=== PATIENT | female | born 1955 | race Caucasian/White ===

== ENCOUNTER 2016-08-04 15:48 | Inpatient (IN) | payer OTHER ==
[~2016-08-04] VITALS: Ht 160 cm; Wt 61.8 kg
[~2016-08-04 15:48] MED LIST: ALPR0.5T PO; ALPR1TAB2 PO; CARB15SO5 MM
[2016-08-04] MEDS ORDERED: NITROGLYCERIN 2% 1 GM OINT PKT TD STA (16:40)
[2016-08-04] MEDS ORDERED: ASPIRIN 81 MG TAB PO STA (16:40)
[2016-08-04] MEDS ORDERED: NITROGLYCERIN (SL) 0.4 MG TAB SL PRN (17:00)
[2016-08-04] MEDS ORDERED: LORAZEPAM 2 MG INJ IV ONE (17:00)
[2016-08-04 17:08] LABS: BASOPHILS % 0.4 % (0.0-2.0); CONDITION 1; EOSINOPHILS % 0.3 % (0.0-7.0); HEMATOCRIT 43.1 % (37.0-47.0); HEMOGLOBIN 14.4 g/dl (12.0-16.0); LYMPHOCYTES # 1.9 10^3/ul (0.8-2.9); LYMPHOCYTES % 26.5 % (15.0-51.0); MEAN CORPUSCULAR HEMOGLOBIN 32.4 pg (29.0-33.0); MEAN CORPUSCULAR HGB CONC 33.4 g/dl (32.0-37.0); MEAN CORPUSCULAR VOLUME 96.8 fl (82.0-101.0); MEAN PLATELET VOLUME 9.2 fl (7.4-10.4); MONOCYTE # 0.6 10^3/ul (0.3-0.9); NEUTROPHIL # 4.8 10^3/ul (1.6-7.5); NEUTROPHILS % 64.8 % (39.0-77.0); PLATELET COUNT 188 10^3/UL (140-440); RED BLOOD COUNT 4.45 10^6/ul (4.20-5.40); RED CELL DISTRIBUTION WIDTH 13.1 % (11.5-14.5); UNCORRECTED WBC 7.3 10^3/ul (4.8-10.8); WHITE BLOOD COUNT 7.3 10^3/ul (4.8-10.8)
[2016-08-04 17:17] LABS: CHLORIDE 104 mmol/L (97-110); INR 0.93; POTASSIUM 4.4 mmol/L (3.5-5.1); PROTIME 12.5 Sec (12.2-14.2); SODIUM 144 mmol/L (135-144)
[2016-08-04 17:18] LABS: PARTIAL THROMBOPLASTIN TIME 27.7 Sec (25.0-35.0)
[2016-08-04 17:20] LABS: ANION GAP 15 (8-16); BLOOD UREA NITROGEN 17 mg/dl (7-20); CARBON DIOXIDE 29 mmol/L (21-31); CREATININE 0.81 mg/dl (0.44-1.00)
--- NOTE | 2016-08-04 17:20 | RADRPT ---
PROCEDURE: Chest Radiograph. CLINICAL INDICATION: Chest pain TECHNIQUE: Single frontal chest radiograph. COMPARISON: None available FINDINGS: Heart size is within normal limits. Atherosclerotic calcifications are present. No infiltrate or effusion is seen. The bones are intact. IMPRESSION: 1. No evidence of acute cardiopulmonary disease. 2. Atherosclerotic vascular disease. RPTAT: HJ[facility] .Silver Garcia MD, MD Date Time Electronically viewed and signed by .Silver Garcia MD, on 08/04/2016 17:19 .B/
[2016-08-04 17:21] LABS: CALCIUM 9.3 mg/dl (8.4-10.2); GLUCOSE 123 mg/dl (70-220)
[2016-08-04 17:37] LABS: TROPONIN-I < 0.012 ng/ml (0.00-0.12)
[2016-08-04] MEDS ORDERED: ACETAMINOPHEN 325 MG TAB PO PRN (18:30)
[2016-08-04] MEDS ORDERED: ONDANSETRON 4 MG INJ IV PRN ×2 (18:30)
[2016-08-04] MEDS ORDERED: HYDROCODONE/APAP (5/325) TAB PO PRN (18:30)
[2016-08-04] MEDS ORDERED: hydrALAzine 20 MG INJ IV PRN (19:00)
--- NOTE | 2016-08-04 19:17 | ERA ---
ER Documentation Chief Complaint Date/Time DATE: 08/04/16 TIME: 19:16 Chief Complaint CHEST PAIN FOR 3 DAYS. ANXIETY AND FEELS FLUSHED IN FACE. NO SIGNS OF SOB HPI Patient is a 60-year-old female who smokes and has a history of coronary disease who presents with chest pain and headache. She also feels very anxious. Her symptoms started 2 days ago. She said they were constant. The chest pain has been worse over the past few hours. She took Gas-X and Mylanta. She has had midsternal chest pressure and belching. Upon review of old medical records this is the patient's third visit to the ER since 2016. ROS All systems reviewed and are negative except as per history of present illness. Medications Home Meds Discontinued Scripts Alprazolam* (Xanax*) 1 Mg Tab, 1 MG PO Q8H Y for ANXIETY, #2 TAB Prov:BEE ZENDEJAS PA-C 12/08/15 Carbamide Peroxide (Gly-Oxide) 60 Ml Solution, 60 ML MM TID, #4 Prov:BEE ZENDEJAS PA-C 12/08/15 Alprazolam* (Xanax*) 0.5 Mg Tab, 0.5 MG PO Q8H Y for ANXIETY, #6 TAB Prov:LASHAUN HUSSEIN MD 07/25/15 Allergies Allergies: Coded Allergies: Penicillins (Unverified Allergy, Severe, 08/04/16) Tetracyclines (Unverified Allergy, Severe, 08/04/16) codeine (Verified Allergy, Severe, 08/04/16) iodine (Verified Allergy, Severe, 08/04/16) PMhx/Soc Medical and Surgical Hx: pt denies Medical Hx Hx Alcohol Use: No Hx Substance Use: No Hx Tobacco Use: No FmHx Family History: coronary disease Physical Exam Vitals Vital Signs Date Time Temp Pulse Resp B/P Pulse Ox O2 Delivery O2 Flow Rate FiO2 08/04/16 15:56 98.4 97 21 163/68 98 Physical Exam Const: Anxious Head: Atraumatic Eyes: Normal Conjunctiva ENT: Normal External Ears, Nose and Mouth. Neck: Full range of motion..~ No meningismus. Resp: Clear to auscultation bilaterally Cardio: Regular rate and rhythm, no murmurs Abd: Soft, non tender, non distended. Normal bowel sounds Skin: No petechiae or rashes Back: No midline or flank tenderness Ext: No cyanosis, or edema Neur: Awake and alert Psych: Normal Mood and Affect Result Diagram: 08/04/16 1640 08/04/16 1640 Results 24 hrs Laboratory Tests Test 08/04/16 16:40 Activated Partial Thromboplast Time 27.7Sec Anion Gap 15 Basophils # 0.010^3/ul Basophils % 0.4% Blood Urea Nitrogen 17mg/dl Calcium Level 9.3mg/dl Carbon Dioxide Level 29mmol/L Chloride Level 104mmol/L Creatinine 0.81mg/dl Eosinophils # 0.010^3/ul Eosinophils % 0.3% Glucose Level 123mg/dl Hematocrit 43.1% Hemoglobin 14.4g/dl INR International Normalized Ratio 0.93 Lymphocytes # 1.910^3/ul Lymphocytes % 26.5% Mean Corpuscular Hemoglobin 32.4pg Mean Corpuscular Hemoglobin Concent 33.4g/dl Mean Corpuscular Volume 96.8fl Mean Platelet Volume 9.2fl Monocytes # 0.610^3/ul Monocytes % 8.0% Neutrophils # 4.810^3/ul Neutrophils % 64.8% Nucleated Red Blood Cells # 0.010^3/ul Nucleated Red Blood Cells % 0.0/100WBC Platelet Count 66477^3/UL Potassium Level 4.4mmol/L Prothrombin Time 12.5Sec Prothrombin Time Ratio 1.0 Red Blood Count 4.4510^6/ul Red Cell Distribution Width 13.1% Sodium Level 144mmol/L Troponin I < 0.012ng/ml White Blood Count 7.310^3/ul Current Medications Medications (Trade) Dose Ordered Sig/Zoila Route PRN Reason Start Time Stop Time Status Last Admin Dose Admin Aspirin (Aspirin) 162 mg ONCE STAT PO 08/04/16 16:40 08/04/16 16:41 DC 08/04/16 16:52 Nitroglycerin (Nitroglycerin 2% Oint) 1 inch ONCE STAT TD 08/04/16 16:40 08/04/16 16:41 DC 08/04/16 16:56 Nitroglycerin (Nitroglycerin (Sl Tab) 0.4 Mg) 1 tab Q5M UP TO 3 DOSES PRN SL CHEST PAIN 08/04/16 17:00 08/04/16 16:52 Lorazepam (Ativan) 0.5 mg ONCE ONCE IV 08/04/16 17:00 08/04/16 17:01 DC 08/04/16 16:57 Ondansetron HCl (Zofran Inj) 4 mg ER BRIDGE PRN IV NAUSEA AND/OR VOMITING 08/04/16 18:30 08/04/16 18:47 DC Acetaminophen (Tylenol Tab) 650 mg ER BRIDGE PRN PO MILD PAIN/FEVER 08/04/16 18:30 08/04/16 18:47 DC Aspirin (Halfprin) 81 mg DAILY PO 08/05/16 09:00 UNV Metoprolol Tartrate (Lopressor) 25 mg BID PO 08/04/16 21:00 UNV Docusate Sodium (Colace) 100 mg BID PO 08/04/16 21:00 UNV Famotidine (Pepcid) 20 mg BID PO 08/04/16 21:00 UNV Ondansetron HCl (Zofran Inj) 4 mg Q6H PRN IV NAUSEA AND/OR VOMITING 08/04/16 18:30 UNV Acetaminophen/ Hydrocodone Bitart ([place] (5/325)) 1 tab Q6H PRN PO pain 08/04/16 18:30 UNV Hydralazine HCl (Apresoline) 10 mg Q6H PRN IV sbp>160mmhg 08/04/16 19:00 UNV Lorazepam (Ativan) 0.5 mg Q12H PRN IV anxiety 08/04/16 19:00 UNV Procedures/MDM EKG #1 read by me: Rate/Rhythm: Regular rate and rhythm at a rate of 93 Intervals: Normal Impression: No evidence of ischemia or arrhythmia EKG #2 pending at this time. Chest x-ray negative for pneumonia or pneumothorax per radiology. Smoking Cessation Therapy: Pt. was lectured for greater than 3 minutes on the health risks of continued smoking and the benefits of cessation. Patient is a 60-year-old female with smoking and her family history of coronary disease who presents with chest pain. I am concerned about possible acute coronary syndrome. I doubt pneumonia, pneumothorax, pulmonary embolism, or aortic dissection. I believe the patient will need admission to a telemetry bed. I spoke with Dr. Kilgore from the panel team as the patient is preferred [employer] insurance. The patient was given aspirin and nitroglycerin empirically. Departure Diagnosis: Primary Impression: Chest pain Qualified Code: R07.9 - Chest pain, unspecified type Condition: LASHAUN Garcia MD Aug 04, 2016 19:17
--- NOTE | 2016-08-04 20:41 | RADRPT ---
PROCEDURE: CT Brain without contrast. CLINICAL INDICATION: Headache with theresa oral numbness. TECHNIQUE: A CT of the brain was performed on a multidetector CT scanner utilizing axial sections from the skull base through the vertex without contrast. Images were reviewed on a high-resolution [employer] workstation. Exam CTDI = 44.97 mGy and the DLP = 720.23 mGy-cm. One or more of the following dose reduction techniques were used: Automated exposure control Adjustment of the mA and/or kV according to patient size. Use of iterative reconstruction technique. COMPARISON: None available FINDINGS: There is age appropriate mild generalized volume loss. There is no evidence of intracranial hemorrh age, mass effect or midline shift. No abnormal intra-axial or extra-axial fluid collections are see n. The density of the brain is normal and the duggan/white matter differentiation is well preserved. The osseous structures and visualized paranasal sinuses are unremarkable. Faint vascular calcific ations are present. IMPRESSION: 1. No intracranial hemorrhage, mass effect or midline shift. 2. Mild generalized volume loss. 3. Mild intracranial atherosclerosis. RPTAT: [facility] .Derek Berry MD, MD Date Time Electronically viewed and signed by .Derek Berry MD, on 08/04/2016 20:41 .O/
[2016-08-04] MEDS: METOPROLOL 25 MG TAB PO SCH (21:00)
[2016-08-04] MEDS: DOCUSATE SODIUM 100 MG CAP PO SCH (21:00)
[2016-08-04] MEDS: FAMOTIDINE 20 MG TAB PO SCH (21:35)
[2016-08-04] MEDS: LORAZEPAM 2 MG INJ IV PRN (21:38)
[2016-08-04 22:16] LABS: ADD UMIC NO; URINE BILIRUBIN (Dip) NEGATIVE (NEGATIVE); URINE BLOOD (Dip) NEGATIVE (NEGATIVE); URINE COLOR LT. YELLOW (YELLOW); URINE GLUCOSE (Dip) NEGATIVE (NEGATIVE); URINE KETONES (Dip) NEGATIVE (NEGATIVE); URINE LEUKOCYTE ESTERASE (Dip) NEGATIVE (NEGATIVE); URINE NITRITE (Dip) NEGATIVE (NEGATIVE); URINE TOTAL PROTEIN (Dip) NEGATIVE (NEGATIVE); URINE UROBILINOGEN (Dip) 0.2 E.U./dL (0.1-1.0)
[2016-08-04 22:54] LABS: BARBITURATES Negative (NEGATIVE); BENZODIAZEPINES Negative (NEGATIVE); CANNABINOIDS Negative (NEGATIVE); COCAINE Negative (NEGATIVE); OPIATES Negative (NEGATIVE)
[2016-08-04 23:06] LABS: CREATINE KINASE 49 IU/L (23-200)
[2016-08-04 23:22] LABS: TROPONIN-I < 0.012 ng/ml (0.00-0.12)
[2016-08-05] VITALS (10 sets, daily range): BP systolic 92–131; BP diastolic 51–64; PULSE 53–68; RESP 18–20; Ht 160 cm; Wt 61.8 kg
[2016-08-05] MEDS ORDERED: ZOLPIDEM 5 MG TAB PO PRN (01:30)
--- NOTE | 2016-08-05 06:00 | HP ---
DATE OF ADMISSION: 08/04/2016 PRESENTING COMPLAINT: Epigastric pain. HISTORY OF PRESENTING COMPLAINT: Ms. Desai is a 60-year-old female with a past medical history of burning mouth syndrome, who presents to our emergency room today with a 3-day history of worsening epigastric pain. Pain is located right in her epigastric region, and is described more like a press ure and burning sensation. The patient's chest pain does not radiate and she does not have any shor tness of breath associated with this pain. She has had burning mouth syndrome for more than a year; since 07/2015, and this utmost concern. She has seen multiple physicians, and finally had been hema gnosed with burning mouth syndrome, but does not take any medication routinely for that. Usually, s he is able to control it and endure the pain, the sensation, and the discomfort associated with that . However, over the last day, the sensations have been worsening, and she had flushing in her face and associated with a frontal headache, which she has never really had before. She does not think this headache is associated with nitroglycerin given to her in the ER. The chest pain is not associ ated with diaphoresis or discomfort. The pain does effect her sometimes upon awakening, but she watt s not think it is worse with lying down. She does not have a history of acid reflux. 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 However, due to her burning sensation in the mouth and smoking history, as well as the location of pain, and the fact that it is somewhat atypic al, I believe that the patient will also benefit from a GI review to rule out peptic ulcer disease. PAST MEDICAL HISTORY: Positive for burning mouth syndrome and anxiety intermittently only, which sh e is not on any medication for. ALLERGIES: SHE HAS ALLERGIES TO PENICILLIN, TETRACYCLINE, IODINE, AND CODEINE. SOCIAL HISTORY: Positive for cigarette use for at least 10 years; she has cut down to 1-2 cigarette s per day, but she does not smoke marijuana and does not use illicit drugs. She drinks alcohol only occasionally. FAMILY HISTORY: Summarized above. HOME MEDICATIONS: None. REVIEW OF SYSTEMS: A detailed 10-point review of systems, and she denies mood or thought disorders other than occasional anxiety. Denies abdominal pain. Denies extremity weakness. Denies palpitati ons. Denies cough. Denies dysuria. Denies passing out episodes. Denies any history of thyroid or diabetic disorders. All other systems were reviewed and negative. PHYSICAL EXAMINATION: VITAL SIGNS: Temperature 98.4, pulse 97, respirations 21, blood pressure 163/68, saturations 98% on room air. GENERAL: I found a well-developed lady, who was alert and oriented. She was in no distress, but sh brandee was somewhat anxious. HEENT: Head is normocephalic with equal, round, and reactive pupils. Mucous membranes were moist. Posterior pharynx was clear of erythema and exudate. NECK: Supple without adenopathy or JVD. CHEST: Clear to auscultation. She did have a nitroglycerin patch on her anterior sternum. CARDIOVASCULAR: S1 and S2 without added sounds or murmurs. ABDOMEN: Soft, nontender, nondistended, with normal active bowel sounds. EXTREMITIES: She had no lower-extremity edema. SKIN: Devoid of rashes, jaundice. PSYCHIATRIC: She was anxious. LABORATORY VALUES: I reviewed her labs, and basically her CBC, BMP, and coag profile were all unrem arkable. Her chest x-ray also was unremarkable for any acute cardiopulmonary abnormalities, and her EKG showed normal sinus rhythm with a regular ventricular rate of 78 beats per minute, and no jason rning ST elevations or depressions suggestive of an acute cardiac exam. This was upon my review. ASSESSMENT AND PLAN: 1. Epigastric pain, rule out acute coronary syndrome versus gastrointestinal pathology, like peptic ulcer disease. 2. Chronic anxiety. 3. History of burning mouth syndrome. 4. High blood pressure, uncontrolled. 5. Tobacco abuse. 6. Family history of coronary artery disease. PLAN: Admitting patient to telemetry floor and complete ACS rule out with 3 sets of cardiac enzymes . The patient will also get a 2D echocardiogram, and I believe she will benefit from a cardiology c onsult for possible stress test. On the other hand I will also get a GI consult for possible endosco py to rule out a GI pathology for her symptoms. The patient states that she has never had an endosc opy before. We will control blood pressure with beta-blockers, and add PPI to her regimen, as well as aspirin therapy. We will screen for thyroid disease, diabetes, as well as dyslipidemia. Further interventions will depend on our clinical findings. I reviewed this plan of care with the kaci alcocer and I have answered her questions. Evaluation time so far has been about 35 minutes. For followup information and clarification, michael irvin review the patient's chart and my orders. Dictated By: DEIDRA SY MD BA/NTS Conf#: [id number] DID#: [id number]
[2016-08-05 06:21] LABS: BASOPHILS % 0.3 % (0.0-2.0); EOSINOPHILS # 0.1 10^3/ul (0.0-0.5); EOSINOPHILS % 0.7 % (0.0-7.0); HEMATOCRIT 39.1 % (37.0-47.0); HEMOGLOBIN 13.6 g/dl (12.0-16.0); LYMPHOCYTES # 2.4 10^3/ul (0.8-2.9); LYMPHOCYTES % 26.3 % (15.0-51.0); MEAN CORPUSCULAR HEMOGLOBIN 33.7 pg (29.0-33.0); MEAN CORPUSCULAR HGB CONC 34.8 g/dl (32.0-37.0); MEAN CORPUSCULAR VOLUME 96.9 fl (82.0-101.0); MONOCYTE # 0.7 10^3/ul (0.3-0.9); MONOCYTES % 7.8 % (0.0-11.0); NEUTROPHIL # 5.9 10^3/ul (1.6-7.5); NEUTROPHILS % 64.9 % (39.0-77.0); PLATELET COUNT 174 10^3/UL (140-440); RED BLOOD COUNT 4.04 10^6/ul (4.20-5.40); RED CELL DISTRIBUTION WIDTH 13.2 % (11.5-14.5)
[2016-08-05 06:45] LABS: CONDITION 1
[2016-08-05 06:56] LABS: POTASSIUM 4.3 mmol/L (3.5-5.1)
[2016-08-05 06:58] LABS: CREATINE KINASE 40 IU/L (23-200)
[2016-08-05 06:59] LABS: CREATININE 0.66 mg/dl (0.44-1.00)
[2016-08-05 07:00] LABS: CALCIUM 9.3 mg/dl (8.4-10.2); MAGNESIUM 2.1 mg/dl (1.7-2.5)
[2016-08-05 07:05] LABS: CK-MB 0.36 ng/ml (0.0-2.4)
[2016-08-05 07:18] LABS: TROPONIN-I < 0.012 ng/ml (0.00-0.12)
[2016-08-05 07:26] LABS: THYROID STIMULATING HORMONE 2.08 MIU/L (0.465-4.680)
[2016-08-05] MEDS: FAMOTIDINE 20 MG TAB PO SCH (08:40)
[2016-08-05] MEDS: DOCUSATE SODIUM 100 MG CAP PO SCH (08:40)
[2016-08-05] MEDS: METOPROLOL 25 MG TAB PO SCH (08:40)
[2016-08-05] MEDS ORDERED: ASPIRIN (EC) 81 MG TAB PO SCH (09:00)
--- NOTE | 2016-08-05 13:21 | PN ---
Date/Time of Note Date/Time of Note DATE: 08/05/16 TIME: 13:16 Assessment/Plan VTE Prophylaxis VTE Prophylaxis Intervention: SCD's Lines/Catheters IV Catheter Type (from Nrsg): Saline Lock Assessment/Plan Assessment/Plan Epigastric pain: improved but still present * ACS has been ruled out / echo pending though Chronic anxiety. History of burning mouth syndrome. High blood pressure: controlled * on no meds right now Tobacco abuse. Family history of coronary artery disease. PLAN: Continue telemetry care Await GI and cardio recs Tobacco cessation counselling done and will continue to be reinforced throughout hospitalization. Cont current regimen Subjective 24 Hr Interval Summary Free Text/Dictation Patient seen and examined. still has epigastric pressure Cardio and Gi reviews pending Exam/Review of Systems Vital Signs Vitals Vital Signs Date Time Temp Pulse Resp B/P Pulse Ox O2 Delivery O2 Flow Rate FiO2 08/05/16 12:27 53 08/05/16 11:40 98.0 20 107/56 98 08/05/16 00:18 Room Air 08/04/16 20:00 2 Exam Constitutional: alert Psych: nl mood/affect Head: atraumatic, normocephalic Eyes: PERRL ENMT: mucosa pink and moist Neck: non-tender, supple Respiratory: clear to auscultation, normal air movement Cardiovascular: nl pulses, regular rate and rhythm Gastrointestinal: bowel sounds, non-tender, soft Extremities: No edema Neurological: nl mental status Results Result Diagram: 08/05/16 0521 08/05/16 0521 Results 24 hrs Laboratory Tests Test 08/04/16 16:40 08/04/16 18:30 08/04/16 22:40 08/05/16 05:21 Activated Partial Thromboplast Time 27.7 Anion Gap 15 16 Basophils # 0.0 0.0 Basophils % 0.4 0.3 Blood Urea Nitrogen 17 15 Calcium Level 9.3 9.3 Carbon Dioxide Level 29 27 Chloride Level 104 105 Creatinine 0.81 0.66 Eosinophils # 0.0 0.1 Eosinophils % 0.3 0.7 Glucose Level 123 79 # Hematocrit 43.1 39.1 Hemoglobin 14.4 13.6 INR International Normalized Ratio 0.93 Lymphocytes # 1.9 2.4 Lymphocytes % 26.5 26.3 Mean Corpuscular Hemoglobin 32.4 33.7 H Mean Corpuscular Hemoglobin Concent 33.4 34.8 Mean Corpuscular Volume 96.8 96.9 Mean Platelet Volume 9.2 9.0 Monocytes # 0.6 0.7 Monocytes % 8.0 7.8 Neutrophils # 4.8 5.9 Neutrophils % 64.8 64.9 Nucleated Red Blood Cells # 0.0 0.0 Nucleated Red Blood Cells % 0.0 0.0 Platelet Count 188 174 Potassium Level 4.4 4.3 Prothrombin Time 12.5 Prothrombin Time Ratio 1.0 Red Blood Count 4.45 4.04 L Red Cell Distribution Width 13.1 13.2 Sodium Level 144 144 Troponin I < 0.012 < 0.012 < 0.012 White Blood Count 7.3 9.0 # Urine Amphetamines Screen Negative Urine Barbiturates Negative Urine Benzodiazepines Screen Negative Urine Bilirubin NEGATIVE Urine Cannabinoids Negative Urine Clarity CLEAR Urine Cocaine Screen Negative Urine Color LT. YELLOW Urine Glucose NEGATIVE Urine Hemoglobin NEGATIVE Urine Ketones NEGATIVE Urine Leukocyte Esterase NEGATIVE Urine Nitrite NEGATIVE Urine Opiates Screen Negative Urine Specific [place] 1.015 Urine Total Protein NEGATIVE Urine Urobilinogen 0.2 E.U./dL Urine pH 7.5 Creatine Kinase 49 40 Creatine Kinase Index 1.0 0.9 Creatinine Kinase MB (Mass) 0.50 0.36 Cholesterol Level 212 H Cholesterol/HDL Ratio 4.0 HDL Cholesterol 53 Hemoglobin A1c 5.4 LDL Cholesterol, Calculated 133 Magnesium Level 2.1 Thyroid Stimulating Hormone (TSH) 2.080 Triglycerides Level 128 Medications Medications Current Medications Aspirin (Halfprin) 81 mg DAILY PO Last administered on 08/05/16 08:40; Admin Dose 81 MG; Start 08/05/16 at 09:00 Metoprolol Tartrate (Lopressor) 25 mg BID PO Last administered on 08/05/16 08: 40; Admin Dose 25 MG; Start 08/04/16 at 21:00 Docusate Sodium (Colace) 100 mg BID PO ; Start 08/04/16 at 21:00 Famotidine (Pepcid) 20 mg BID PO Last administered on 08/05/16 08:40; Admin Dose 20 MG; Start 08/04/16 at 21:00 Ondansetron HCl (Zofran Inj) 4 mg Q6H PRN IV NAUSEA AND/OR VOMITING; Start at 18:30 Hydralazine HCl (Apresoline) 10 mg Q6H PRN IV sbp>160mmhg; Start 08/04/16 at 19 :00 Lorazepam (Ativan) 0.5 mg Q12H PRN IV anxiety Last administered on 08/04/16 21 :38; Admin Dose 0.5 MG; Start 08/04/16 at 19:00 Zolpidem Tartrate (Ambien) 5 mg HS PRN PO INSOMNIA Last administered on 01:35; Admin Dose 5 MG; Start 08/05/16 at 01:30 Procedures Procedures PROCEDURE: CT Brain without contrast. CLINICAL INDICATION: Headache with theresa oral numbness. TECHNIQUE: A CT of the brain was performed on a multidetector CT scanner utilizing axial sections from the skull base through the vertex without contrast. Images were reviewed on a high-resolution PACS workstation. Exam CTDI = 44.97 mGy and the DLP = 720.23 mGy-cm. One or more of the following dose reduction techniques were used: Automated exposure control Adjustment of the mA and/or kV according to patient size. Use of iterative reconstruction technique. COMPARISON: None available FINDINGS: There is age appropriate mild generalized volume loss. There is no evidence of intracranial hemorrhage, mass effect or midline shift. No abnormal intra-axial or extra-axial fluid collections are seen. The density of the brain is normal and the duggan/white matter differentiation is well preserved. The osseous structures and visualized paranasal sinuses are unremarkable. Faint vascular calcifications are present. IMPRESSION: 1. No intracranial hemorrhage, mass effect or midline shift. 2. Mild generalized volume loss. 3. Mild intracranial atherosclerosis. RPTAT: [facility] .Derek Berry MD, MD Date Time Electronically viewed and signed by .Derek Berry MD, on 08/04/2016 20:41 DEIDRA SY Aug 05, 2016 13:21
--- NOTE | 2016-08-05 13:36 | RADRPT ---
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 Physician: DEIDRA SY Quality: Good Procedures: Transthoracic echocardiogram with complete 2D, M-Mode, and doppler examination. Indications: Chest Pain. 2D/M Mode Doppler Measurement Value Normal Ranges Measurement Value Normal Ranges LVIDd 2D 4.1 3.5 - 5.6 cm AV Peak Hira 1.2 m/sec LVIDs 2D 2.7 2.1 - 4.1 cm AV Peak PG 6.2 mmHg LVPWd 2D 0.8 0.6 - 1.1 cm AI Peak PG 24.7 mmHg IVSd 2D 0.7 0.6 - 1.1 cm AI Peak Hira 2.5 m/sec AoR Diam 2D 2.5 2.0 - 3.7 cm AI PHT 570.2 msec EDV 2D 74.1 cm3 LVOT Peak Hira 1.1 m/sec ESV 2D 19.7 cm3 LVOT Peak PG 4.8 mmHg LA Dimen 2D 2.9 2.3 - 4.0 cm MV E Peak Hira 0.8 m/sec MV A Peak Hira 0.5 m/sec MV E/A 1.6 MV Decel Time 184 msec MV Decel [place] 4 MV E/A 1.6 TR Peak Hira 2.2 m/sec TR Peak PG 19.2 mmHg RVSP 22.0 mmHg Findings Left Ventricle: Normal left ventricular systolic function. Normal left ventricular cavity size. Normal left ventricular wall thickness. Ejection fraction is visually estimated at 5560 %. Tissue Doppler/Mitral Doppler indices are within normal limits. Right Ventricle: Normal right ventricular size. Normal right ventricular systolic function. Left Atrium: The left atrium is normal in size. Right Atrium: The right atrium is normal in size. Mitral Valve: Mitral valve leaflets appear mildly thickened. Mild mitral annular calcification. Trace mitral regurgitation. Aortic Valve: Normal appearance of the aortic valve. No significant aortic stenosis or insufficiency. Tricuspid Valve: Normal appearance of the tricuspid valve. Estimated peak PA systolic pressure 22 mmHg. There is mild tricuspid regurgitation. Pericardium: Normal pericardium with no significant pericardial effusion. Aorta: Normal aortic root. IVC: Normal size and normal respiratory collapse consistent with normal right atrial pressure. Conclusions 1.The left ventricle is normal in size and systolic function. 2.Estimated left ventricular ejection fraction of 55-60%. Electronically Signed By: Hilario Clemente 05-Aug-2016 13:36:08 -0800 Patient Name: CHARLES KHAN Study Date: 05-Aug-[id number]
[2016-08-05] MEDS: LORAZEPAM 2 MG INJ IV PRN (14:12)
--- NOTE | 2016-08-05 14:34 | CONS ---
Date/Time of Note Date/Time of Note DATE: 08/05/16 TIME: 14:30 Assessment/Plan Assessment/Plan Chief Complaint/Hosp Course Assessment: Chest and epigastric pain - suspect anxiety or gastrointestinal etiology, ruled out for myocardial infarction Family history of coronary artery disease Tobacco use Recommendations: -echocardiogram showed normal LVEF 55-60% -no additional cardiac work up at this time, consider cardiac stress testing as outpatient -patient counselled on smoking cessation Problems: Consultation Date/Type/Reason Admit Date/Time Aug 04, 2016 at 18:14 Type of Consultation: Cardiology Reason for Consultation chest pain Referring Provider: DEIDRA SY Hx of Present Illness The patient is a 60 year-old female who presented with chest and epigastric pain. She describes an intermittent "gas and bubbling" sensation that has been occurring for three days prior to presentation. Her symptoms are unrelated to exertion. 14 point review of systems negative other than per HPI. Psychological: nl mood/affect Past Medical History Burning mouth syndrome Anxiety Family History Significant Family History: heart disease (father with myocardial infarction in his 50s) Social History Alcohol Use: occasionally Smoking Status: Current every day smoker Drug Use: none Exam/Review of Systems Vital Signs Vitals Vital Signs Date Time Temp Pulse Resp B/P Pulse Ox O2 Delivery O2 Flow Rate FiO2 08/05/16 12:27 53 08/05/16 11:40 98.0 20 107/56 98 08/05/16 00:18 Room Air 08/04/16 20:00 2 Exam Constitutional: alert, oriented Psych: anxiety, nl mood/affect, no complaints Head: atraumatic, normocephalic Eyes: nl conjunctiva, nl lids ENMT: nl external ears & nose, nl nasal mucosa & septum Neck: non-tender, supple, No jvd Respiratory: clear to auscultation, normal air movement Cardiovascular: regular rate and rhythm Gastrointestinal: non-tender, soft Musculoskeletal: nl extremities to inspection Extremities: No clubbing, No cyanosis, No edema Results Result Diagram: 08/05/16 0508/05/16 0521 Results 24 hrs Laboratory Tests Test 08/04/16 16:40 08/04/16 18:30 08/04/16 22:40 08/05/16 05:21 Activated Partial Thromboplast Time 27.7 Anion Gap 15 16 Basophils # 0.0 0.0 Basophils % 0.4 0.3 Blood Urea Nitrogen 17 15 Calcium Level 9.3 9.3 Carbon Dioxide Level 29 27 Chloride Level 104 105 Creatinine 0.81 0.66 Eosinophils # 0.0 0.1 Eosinophils % 0.3 0.7 Glucose Level 123 79 # Hematocrit 43.1 39.1 Hemoglobin 14.4 13.6 INR International Normalized Ratio 0.93 Lymphocytes # 1.9 2.4 Lymphocytes % 26.5 26.3 Mean Corpuscular Hemoglobin 32.4 33.7 H Mean Corpuscular Hemoglobin Concent 33.4 34.8 Mean Corpuscular Volume 96.8 96.9 Mean Platelet Volume 9.2 9.0 Monocytes # 0.6 0.7 Monocytes % 8.0 7.8 Neutrophils # 4.8 5.9 Neutrophils % 64.8 64.9 Nucleated Red Blood Cells # 0.0 0.0 Nucleated Red Blood Cells % 0.0 0.0 Platelet Count 188 174 Potassium Level 4.4 4.3 Prothrombin Time 12.5 Prothrombin Time Ratio 1.0 Red Blood Count 4.45 4.04 L Red Cell Distribution Width 13.1 13.2 Sodium Level 144 144 Troponin I < 0.012 < 0.012 < 0.012 White Blood Count 7.3 9.0 # Urine Amphetamines Screen Negative Urine Barbiturates Negative Urine Benzodiazepines Screen Negative Urine Bilirubin NEGATIVE Urine Cannabinoids Negative Urine Clarity CLEAR Urine Cocaine Screen Negative Urine Color LT. YELLOW Urine Glucose NEGATIVE Urine Hemoglobin NEGATIVE Urine Ketones NEGATIVE Urine Leukocyte Esterase NEGATIVE Urine Nitrite NEGATIVE Urine Opiates Screen Negative Urine Specific [place] 1.015 Urine Total Protein NEGATIVE Urine Urobilinogen 0.2 E.U./dL Urine pH 7.5 Creatine Kinase 49 40 Creatine Kinase Index 1.0 0.9 Creatinine Kinase MB (Mass) 0.50 0.36 Cholesterol Level 212 H Cholesterol/HDL Ratio 4.0 HDL Cholesterol 53 Hemoglobin A1c 5.4 LDL Cholesterol, Calculated 133 Magnesium Level 2.1 Thyroid Stimulating Hormone (TSH) 2.080 Triglycerides Level 128 Medications Medications Current Medications Aspirin (Halfprin) 81 mg DAILY PO Last administered on 08/05/16 08:40; Admin Dose 81 MG; Start 08/05/16 at 09:00 Metoprolol Tartrate (Lopressor) 25 mg BID PO Last administered on 08/05/16 08: 40; Admin Dose 25 MG; Start 08/04/16 at 21:00 Docusate Sodium (Colace) 100 mg BID PO ; Start 08/04/16 at 21:00 Famotidine (Pepcid) 20 mg BID PO Last administered on 08/05/16 08:40; Admin Dose 20 MG; Start 08/04/16 at 21:00 Ondansetron HCl (Zofran Inj) 4 mg Q6H PRN IV NAUSEA AND/OR VOMITING; Start at 18:30 Hydralazine HCl (Apresoline) 10 mg Q6H PRN IV sbp>160mmhg; Start 08/04/16 at 19 :00 Lorazepam (Ativan) 0.5 mg Q12H PRN IV anxiety Last administered on 08/05/16 14 :12; Admin Dose 0.5 MG; Start 08/04/16 at 19:00 Zolpidem Tartrate (Ambien) 5 mg HS PRN PO INSOMNIA Last administered on 01:35; Admin Dose 5 MG; Start 08/05/16 at 01:30 JOAQUIM HATFIELD MD Aug 05, 2016 14:34
--- NOTE | 2016-08-05 16:42 | PDOCDIS ---
Discharge Instructions DIAGNOSIS Discharge Diagnosis: Epigastric pain CONDITION Patient Condition: Stable HOME CARE INSTRUCTIONS: Special Diet: Cardiac ACTIVITY: Activity Restrictions: Slowly Increase Activity Rest between Activity FOLLOW UP/APPOINTMENTS Appointments Followup with your primary doctor within the next 1-2 weeks. If you don't have one please let someone know, we can give you resources that may help you pick one. You may also call your insurance company to assign one to you. Review your medication list with your nurse before leaving and if you need new prescriptions please let your nurse know. I may have made changes to your home medications or given you new prescriptions , please let your primary doctor know as well. Stay compliant with your medications and report any side effects to your PCP or pharmacist. Return to the ER if you have any concerns and cannot reach your doctors or call your insurance company, they usually have a nurse that can help you. DEIDRA SY Aug 05, 2016 16:42
[2016-08-05] MEDS ORDERED: ASPI-664 PO (16:44)
[2016-08-05] MEDS ORDERED: METO-448 PO (16:44)
[2016-08-05] MEDS ORDERED: PANT40TA3 PO (16:44)
--- NOTE | 2016-08-05 17:00 | DS ---
Date/Time of Note Date/Time of Note DATE: 08/05/16 TIME: 16:58 Discharge Summary Admission/Discharge Info Admit Date/Time Aug 04, 2016 at 18:14 Discharge Date/Time 08/05/16 Final Diagnosis Epigastric pain: resolved * ACS has been ruled out / echo pending though Chronic anxiety. History of burning mouth syndrome. High blood pressure: controlled Tobacco abuse. Family history of coronary artery disease. Patient Condition: Stable Consults GI / Cardiology Hospital Course 60 yo F managed for Chest and epigastric pain - suspect anxiety or gastrointestinal etiology, ruled out for myocardial infarction Family history of coronary artery disease Tobacco use Recommendations: Outpt stress testing and possible out patient endoscopy. PPI therapy. S/p tobacco cessation counselling. Comorbidities were also aggressively managed as per Med records. Patient at this time has been evaluated and examined in detail and is assessed to be in stable condition and ready for discharge. Home Meds Active Scripts Pantoprazole* (Protonix*) 40 Mg Tablet., 40 MG PO DAILY for 30 Days, TAB Prov:DEIDRA SY. 08/05/16 Metoprolol Tartrate* (Lopressor*) 25 Mg Tab, 12.5 MG PO BID for 30 Days, TAB 1 Refill Prov:KERRIEDEIDRA Howard. 08/05/16 Aspirin* (Aspirin* EC) 81 Mg Tablet., 81 MG PO DAILY for 30 Days, 2 Refills Prov:KERRIEDEIDRA Howard. 08/05/16 Discontinued Scripts Alprazolam* (Xanax*) 1 Mg Tab, 1 MG PO Q8H Y for ANXIETY, #2 TAB Prov:BEE ZENDEJAS PA-C 12/08/15 Carbamide Peroxide (Gly-Oxide) 60 Ml Solution, 60 ML MM TID, #4 Prov:BEE ZENDEJAS PA-C 12/08/15 Alprazolam* (Xanax*) 0.5 Mg Tab, 0.5 MG PO Q8H Y for ANXIETY, #6 TAB Prov:LASHAUN HUSSEIN MD 07/25/15 Pending Labs Laboratory Tests Test 08/04/16 18:30 08/04/16 22:40 08/05/16 05:21 Urine Amphetamines Screen Negative (NEGATIVE) Urine Barbiturates Negative (NEGATIVE) Urine Benzodiazepines Screen Negative (NEGATIVE) Urine Bilirubin NEGATIVE (NEGATIVE) Urine Cannabinoids Negative (NEGATIVE) Urine Clarity CLEAR (CLEAR) Urine Cocaine Screen Negative (NEGATIVE) Urine Color LT. YELLOW (YELLOW) Urine Glucose NEGATIVE% (NEGATIVE) Urine Hemoglobin NEGATIVE (NEGATIVE) Urine Ketones NEGATIVE (NEGATIVE) Urine Leukocyte Esterase NEGATIVE (NEGATIVE) Urine Nitrite NEGATIVE (NEGATIVE) Urine Opiates Screen Negative (NEGATIVE) Urine Specific [place] 1.015 (1.003-1.030) Urine Total Protein NEGATIVE (NEGATIVE) Urine Urobilinogen 0.2 E.U./dL (0.1-1.0) Urine pH 7.5 (5.0-9.0) Creatine Kinase 49IU/L (23-200) 40IU/L (23-200) Creatine Kinase Index 1.0 0.9 Creatinine Kinase MB (Mass) 0.50ng/ml (0.0-2.4) 0.36ng/ml (0.0-2.4) Troponin I < 0.012ng/ml (0.00-0.12) < 0.012ng/ml (0.00-0.12) Anion Gap 16 (8-16) Basophils # 0.010^3/ul (0.0-0.1) Basophils % 0.3% (0.0-2.0) Blood Urea Nitrogen 15mg/dl (7-20) Calcium Level 9.3mg/dl (8.4-10.2) Carbon Dioxide Level 27mmol/L (21-31) Chloride Level 105mmol/L (97-110) Cholesterol Level 212mg/dl (100-200) Cholesterol/HDL Ratio 4.0RATIO Creatinine 0.66mg/dl (0.44-1.00) Eosinophils # 0.110^3/ul (0.0-0.5) Eosinophils % 0.7% (0.0-7.0) Glucose Level 79mg/dl (70-220) HDL Cholesterol 53mg/dl (35-98) Hematocrit 39.1% (37.0-47.0) Hemoglobin 13.6g/dl (12.0-16.0) Hemoglobin A1c 5.4% (0-5.9) LDL Cholesterol, Calculated 133mg/dl Lymphocytes # 2.410^3/ul (0.8-2.9) Lymphocytes % 26.3% (15.0-51.0) Magnesium Level 2.1mg/dl (1.7-2.5) Mean Corpuscular Hemoglobin 33.7pg (29.0-33.0) Mean Corpuscular Hemoglobin Concent 34.8g/dl (32.0-37.0) Mean Corpuscular Volume 96.9fl (82.0-101.0) Mean Platelet Volume 9.0fl (7.4-10.4) Monocytes # 0.710^3/ul (0.3-0.9) Monocytes % 7.8% (0.0-11.0) Neutrophils # 5.910^3/ul (1.6-7.5) Neutrophils % 64.9% (39.0-77.0) Nucleated Red Blood Cells # 0.010^3/ul (0.0-0.0) Nucleated Red Blood Cells % 0.0/100WBC (0.0-0.0) Platelet Count 72801^3/UL (140-440) Potassium Level 4.3mmol/L (3.5-5.1) Red Blood Count 4.0410^6/ul (4.20-5.40) Red Cell Distribution Width 13.2% (11.5-14.5) Sodium Level 144mmol/L (135-144) Thyroid Stimulating Hormone (TSH) 2.080MIU/L (0.465-4.680) Triglycerides Level 128mg/dl (0-149) White Blood Count 9.010^3/ul (4.8-10.8) DEIDRA SY Aug 05, 2016 17:00
--- NOTE | 2016-08-05 17:28 | CONS ---
Date/Time of Note Date/Time of Note DATE: 08/05/16 TIME: 17:25 Assessment/Plan Assessment/Plan Additional Assessment/Plan Burning facial pain, resolved Chronic anxiety History of burning mouth syndrome * Recommend outpatient EGD, to rule out PUD * PPI every morning High blood pressure Tobacco abuse. Family history of coronary artery disease Further recommendations depend on clinical course Patient stable from GI standpoint Patient seen in collaboration with Dr. Winter Consultation Date/Type/Reason Admit Date/Time Aug 04, 2016 at 18:14 Type of Consultation: Gastroenterology Reason for Consultation Abdominal pain Hx of Present Illness 60-year-old female with history of diagnoses of burning mouth syndrome presented to ED due to complaints of intense burning pain over entire space for 1 day. Patient states she has never had this experience before and presented to ED for further evaluation. At bedside patient denies epigastric pain, nausea , vomiting as associated symptoms. Patient states diagnosis of burning mouth syndrome 1 year and symptoms have been controlled with diet. Patient denies history of acid reflux and any other chronic condition other than the aforementioned. Patient denies any current or new medications, travel outside the [place], diarrhea, hematochezia, and previous endoscopic evaluation. Patient currently tolerating diet without any difficulty and she would prefer outpatient evaluation if necessary. Recommend outpatient EGD for further evaluation and PPI every morning. Per HPI Psychological: anxiety, nl mood/affect, no complaints Past Medical History Medical History: other (Burning mouth syndrome) Social History Alcohol Use: occasionally Smoking Status: Current every day smoker Drug Use: none Exam/Review of Systems Vital Signs Vitals Vital Signs Date Time Temp Pulse Resp B/P Pulse Ox O2 Delivery O2 Flow Rate FiO2 08/05/16 16:34 59 08/05/16 15:52 98.3 20 131/59 97 08/05/16 00:18 Room Air 08/04/16 20:00 2 Exam Constitutional: alert, oriented, well developed Psych: nl mood/affect Head: normocephalic Eyes: EOMI, nl conjunctiva, nl lids, nl sclera ENMT: mucosa pink and moist, nl external ears & nose, nl lips & teeth, nl nasal mucosa & septum Respiratory: clear to auscultation Cardiovascular: regular rate and rhythm Gastrointestinal: nl liver, spleen, non-tender, soft Neurological: TEST [employer] II-XII intact Results Result Diagram: 08/05/16 0521 08/05/16 0521 Results 24 hrs Laboratory Tests Test 08/04/16 18:30 08/04/16 22:40 08/05/16 05:21 Urine Amphetamines Screen Negative Urine Barbiturates Negative Urine Benzodiazepines Screen Negative Urine Bilirubin NEGATIVE Urine Cannabinoids Negative Urine Clarity CLEAR Urine Cocaine Screen Negative Urine Color LT. YELLOW Urine Glucose NEGATIVE Urine Hemoglobin NEGATIVE Urine Ketones NEGATIVE Urine Leukocyte Esterase NEGATIVE Urine Nitrite NEGATIVE Urine Opiates Screen Negative Urine Specific [place] 1.015 Urine Total Protein NEGATIVE Urine Urobilinogen 0.2 E.U./dL Urine pH 7.5 Creatine Kinase 49 40 Creatine Kinase Index 1.0 0.9 Creatinine Kinase MB (Mass) 0.50 0.36 Troponin I < 0.012 < 0.012 Anion Gap 16 Basophils # 0.0 Basophils % 0.3 Blood Urea Nitrogen 15 Calcium Level 9.3 Carbon Dioxide Level 27 Chloride Level 105 Cholesterol Level 212 H Cholesterol/HDL Ratio 4.0 Creatinine 0.66 Eosinophils # 0.1 Eosinophils % 0.7 Glucose Level 79 # HDL Cholesterol 53 Hematocrit 39.1 Hemoglobin 13.6 Hemoglobin A1c 5.4 LDL Cholesterol, Calculated 133 Lymphocytes # 2.4 Lymphocytes % 26.3 Magnesium Level 2.1 Mean Corpuscular Hemoglobin 33.7 H Mean Corpuscular Hemoglobin Concent 34.8 Mean Corpuscular Volume 96.9 Mean Platelet Volume 9.0 Monocytes # 0.7 Monocytes % 7.8 Neutrophils # 5.9 Neutrophils % 64.9 Nucleated Red Blood Cells # 0.0 Nucleated Red Blood Cells % 0.0 Platelet Count 174 Potassium Level 4.3 Red Blood Count 4.04 L Red Cell Distribution Width 13.2 Sodium Level 144 Thyroid Stimulating Hormone (TSH) 2.080 Triglycerides Level 128 White Blood Count 9.0 # Medications Medications Current Medications Aspirin (Halfprin) 81 mg DAILY PO Last administered on 08/05/16 08:40; Admin Dose 81 MG; Start 08/05/16 at 09:00 Metoprolol Tartrate (Lopressor) 25 mg BID PO Last administered on 08/05/16 08: 40; Admin Dose 25 MG; Start 08/04/16 at 21:00 Docusate Sodium (Colace) 100 mg BID PO ; Start 08/04/16 at 21:00 Famotidine (Pepcid) 20 mg BID PO Last administered on 08/05/16 08:40; Admin Dose 20 MG; Start 08/04/16 at 21:00 Ondansetron HCl (Zofran Inj) 4 mg Q6H PRN IV NAUSEA AND/OR VOMITING; Start at 18:30 Hydralazine HCl (Apresoline) 10 mg Q6H PRN IV sbp>160mmhg; Start 08/04/16 at 19 :00 Lorazepam (Ativan) 0.5 mg Q12H PRN IV anxiety Last administered on 08/05/16 14 :12; Admin Dose 0.5 MG; Start 08/04/16 at 19:00 Zolpidem Tartrate (Ambien) 5 mg HS PRN PO INSOMNIA Last administered on 01:35; Admin Dose 5 MG; Start 08/05/16 at 01:30 SHADE LLANES Aug 05, 2016 17:28
== END 2016-08-05 17:50 | disposition home or self-care (01) | DRG 392 ==
LOC: E/R 15:48 → TEL 18:14
PROVIDERS: ADMIT Family Medicine; ATTEND Family Medicine
DX: R10.13 Epigastric pain (principal); I10 Essential (primary) hypertension; F41.9 Anxiety disorder, unspecified; F17.200 Nicotine dependence, unspecified, uncomplicated; Z82.49 Family history of ischemic heart disease and other diseases of the circulatory system
CPT/HCPCS: 36415; 70450; 71010; 80048; 80061; 80307; 81003; 82550; 82553; 83036; 83735; 84443; 84484; 85025; 85610; 85730; 93005; 93306; 96374; 96376; J2060